=== PATIENT | female | born 1935 | race Two or more races ===

== ENCOUNTER 2019-05-24 10:49 | Emergency (ER) | payer MEDICARE, OTHER ==
[~2019-05-24] VITALS: Ht 162.6 cm; Wt 44.9 kg
[2019-05-24 10:55] VITALS: BP 140/70
--- NOTE | 2019-05-24 10:55 | NUR ---
ED Nurse Note: pt walked in to ed for c/o left upper cheek "abscess" that started 02/2019. pt denies having pain.
--- NOTE | 2019-05-24 11:58 | Emergency Room Report ---
History of Present Illness General Chief Complaint: Skin Rash/Abscess Source: Patient Present Illness HPI Disclaimer: Please note that this report is being documented using DRAGON technology. This can lead to erroneous entry secondary to incorrect interpretation by the dictating instrument. HPI: 83-year-old female presents for evaluation of a mass over her left cheek. She states she has had a small lump/lesion over the left maxilla for several years however February 2019 it started growing. Over the past few months it has grown in size steadily. No bleeding, no purulence, no skin breakdown. She states it soft and nontender. She has seen multiple emergency departments looking for referrals to dermatology and so far has been unhappy with the referrals. She states she saw one senior web developer but is unwilling to see them again. She is requesting to speak with a facial surgeon and senior web developer at our facility. She has not followed up with her primary care doctor for this issue. She states she is in the middle of trying to switch her PMD. Denies any fevers, chills. Denies chest pain, shortness of breath, vomiting or other changes in her health otherwise. PMH: Denies PSH: Denies Allergies: Denies Allergies: Coded Allergies: No Known Allergies (Unverified , 05/24/19) Nursing Documentation-PMH Past Medical History: No Stated History Review of Systems All Other Systems: negative except mentioned in HPI Physical Exam Vital Signs Date Time Temp Pulse Resp B/P (MAP) Pulse Ox O2 Delivery O2 Flow Rate FiO2 05/24/19 10:52 97.9 77 16 149/63 (91) 96 Room Air General: Awake and alert, no acute distress HEENT: NC/AT. EOMI. there is a 5 x 5 cm soft tissue mass over the left maxilla. Nontender to palpation. No bleeding, no breakdown, no vesicles. No fluctuance. Appears solid. Neck: Trachea midline, no swelling, no lymphadenopathy Resp: Normal work of breathing. No cough, wheezing or crackles appreciated MSK: Normal tone and bulk. Moving all extremities. No obvious deformity. Neuro: Awake and alert. Mentating appropriately. Medical Decision Making Diagnostic Impression: Primary Impression: Facial mass ER Course 83-year-old female presents for evaluation of a mass over the left maxilla present for several months and growing steadily. Differential includes was not limited to cancerous lesion, benign lesion, cellulitis, abscess.clinically, I see no evidence of infection or deep space abscess. Given that is been present for several years and then slowly began growing is concerning for possible cancerous lesion. I strongly encouraged to follow-up with her PMD for urgent referral to dermatology for biopsy and possible facial surgery for removal. She has been seen by multiple emergency departments over the past few weeks and I do not believe she requires emergent labs or imaging at this time. She does need close outpatient follow-up. Discussed with her that it may be cancer and she needs to follow-up quickly despite her objections to her current PMD this would be the fastest way to do this. She expressed understanding and agreement with this treatment plan the patient was discharged home. Last Vital Signs Date Time Temp Pulse Resp B/P (MAP) Pulse Ox O2 Delivery O2 Flow Rate FiO2 05/24/19 10:55 98.0 79 16 140/70 96 Room Air Disposition: HOME, SELF-CARE Condition: Stable Referrals: [facility] Patient Instructions: Skin Biopsy Additional Instructions: Please follow-up with your primary care doctor immediately to discuss the growing facial mass you have on your left cheek. Ask for urgent referral to a senior web developer and possibly a facial surgeon. Follow-up with them as quickly as possible. Return to the emergency department new or worsening symptoms Daniel Cabrera MD May 24, 2019 11:58
--- NOTE | 2019-05-24 12:05 | NUR ---
ER DISCHARGE NOTE: Patient is cleared to be discharged per ERMD, pt is aox4, on room air, with stable vital signs as documented. pt was given dc instructions, pt was able to verbalize understanding, pt id band removed. pt is able to ambulate with steady gait. pt took all belongings.
== END 2019-05-24 12:05 | disposition home or self-care (01) ==
LOC: EMR 11:30
DX: R22.0 Localized swelling, mass and lump, head (principal)
CPT/HCPCS: 99282